=== PATIENT | female | born 1985 | race Caucasian/White ===

== ENCOUNTER 2022-06-15 08:00 | Outpatient (CLI) | payer OTHER | END 2022-06-15 23:59 | disposition home or self-care (01) | LOC: LAB.N 08:00 | PROVIDERS: ATTEND Physician Assistant | DX: J02.9 Acute pharyngitis, unspecified (principal) | CPT/HCPCS: 87070 ==

== ENCOUNTER 2023-11-02 14:48 | Emergency (ER) | payer OTHER ==
[2023-11-02 15:02] VITALS: BP 150/80; O2SAT 99
--- NOTE | 2023-11-02 15:28 | ED Physician Documentation ---
History of Present Illness - Stated complaint Stated Complaint: COUGHING UP BLOOD - Chief complaint Chief Complaint: General - Additonal information Additional information: 37-year-old female presents emergency department for 1 episode of hemoptysis. Patient says that she had her tonsils removed 2 days ago, she did not have adenoidectomy. Patient says that she has been recovering well pain has been well-controlled with Tylenol and ibuprofen. She said she went down to take a nap today she been sleeping flat on her back, she awoke coughing and coughed up about a dollar sized amount of bloody phlegm. She said that she called the emergency line to ENT office and they told her to come into the emergency department if she was continuing to have persistent hemoptysis. Patient said this only happened once but she was feeling quite nervous at home and wanted to come into the emergency department for further evaluation. This happened about 2 hours ago has not noted any blood since then. She reports that she is doing well drinking plenty of fluids at home PD PAST MEDICAL HISTORY - Past Medical History Past Medical History: Yes Cardiovascular: Hypertension Endocrine/Autoimmune: HyPOthyroidism - Past Surgical History Past Surgical History: Yes HEENT: Tonsil/Adenoidectomy - Present Medications Home Medications: Ambulatory Orders Medication Instructions Recorded Confirmed Levothyroxine Sodium [Synthroid] 11/02/23 Lisinopril [Zestril] 10 11/02/23 - Allergies Allergies/Adverse Reactions: Allergies Allergy/AdvReac Type Severity Reaction Status Date / Time No Known Drug Allergies Allergy Verified 11/02/23 15:02 - Social History Does the pt smoke?: No Smoking Status: Never smoker Does the pt drink ETOH?: No Does the pt have substance abuse?: No - Immunizations Immunizations are current?: Yes - POLST Patient has POLST: No PD ED PE NORMAL - Vitals Vital signs reviewed: Yes - General General: Alert and oriented X 3, No acute distress, Well developed/nourished - HEENT HEENT: Atraumatic, Moist mucous membranes, Other (post bilateral tonsilectomy, no bleeding noted to either side) - Neck Neck: No adenopathy, Other (trachea midline) Results - Vitals Vitals: Vital Signs - 24 hr 11/02/23 14:51 Temperature 36.8 C Heart Rate 70 Respiratory 16 Rate Blood Pressure 150/80 H O2 Saturation 99 Oxygen O2 Source Room air PD Medical Decision Making - ED course ED course: Patient presents emergency department for 1 episode of Hemoptysis. This happened about 2 hours ago and has not happened since then. Upon evaluation of the patient I am not seeing any obvious signs of bleeding. Patient is very reassured. She was offered to stay here for a period of time for monitoring but she says that she is feeling comfortable to discharge at this time. Patient was encouraged to drink plenty of fluids and stay very well-hydrated to keep her throat very moist while she is recovering from her tonsillectomy and to follow- up with ENT as scheduled appointment. She is given return precautions and taught signs and symptoms of postop tonsillectomy hemorrhage. I have no concerns at this point in time the patient is experiencing a postop tonsillectomy hemorrhage. All questions have been answered. Departure - Departure Disposition: 01 Home, Self Care Clinical Impression: Status post tonsillectomy Condition: Good Instructions: ED Tonsillectomy Post Op Bleeding Comments: Thank you for trusting us with your care. I do not see any bleeding at the incision sites of your tonsillectomy. Going home as we discussed I would advise sleeping with your head slightly elevated continue to drink plenty of fluids to make sure that your throat is staying very moist. Come back to the emergency department if you are having persistent bleeding, fevers or chills, or any other concerning symptoms. Wishing you a speedy recovery. Forms: PCP List Discharge Date/Time: 11/02/23 15:37
== END 2023-11-02 15:37 | disposition home or self-care (01) ==
LOC: ED 14:48
DX: J95.830 Postprocedural hemorrhage of a respiratory system organ or structure following a respiratory system procedure (principal); I10 Essential (primary) hypertension
CPT/HCPCS: 99282; 99283

== ENCOUNTER 2023-11-07 13:02 | Emergency (ER) | payer OTHER ==
[2023-11-07 13:15] VITALS: O2SAT 100
--- NOTE | 2023-11-07 14:20 | ED Physician Documentation ---
PD HPI ABD PAIN - Stated complaint Stated Complaint: GI - Chief complaint Chief Complaint: Abd Pain - Additional information Additional information: 37-year-old female presents emergency department for 1 week of constipation. Patient has been taking stool softeners at home as well as suppositories without any relief. She denies any nausea vomiting no abdominal pain. No recent fevers or chills. Patient recently had tonsillectomy about a week ago and has been taking pain medication for this and says that she is prone to constipation and she Believes the recent tonsillectomy and pain medications that she is been taking for that is the cause of her current constipation. PD PAST MEDICAL HISTORY - Past Medical History Past Medical History: Yes Cardiovascular: Hypertension Endocrine/Autoimmune: HyPOthyroidism - Past Surgical History Past Surgical History: Yes HEENT: Tonsil/Adenoidectomy - Present Medications Home Medications: Ambulatory Orders Medication Instructions Recorded Confirmed Levothyroxine Sodium [Synthroid] 1 tab PO DAILY 11/02/23 11/07/23 Lisinopril [Zestril] 1 tab PO DAILY 11/02/23 11/07/23 Lactulose 15 ml PO TID PRN #50 ml 11/07/23 - Allergies Allergies/Adverse Reactions: Allergies Allergy/AdvReac Type Severity Reaction Status Date / Time No Known Drug Allergies Allergy Verified 11/07/23 13:05 - Social History Does the pt smoke?: No Smoking Status: Never smoker Does the pt drink ETOH?: No Does the pt have substance abuse?: No - Immunizations Immunizations are current?: Yes - POLST Patient has POLST: No PD ED PE NORMAL - Vitals Vital signs reviewed: Yes - General General: Alert and oriented X 3, No acute distress, Well developed/nourished - Respiratory Respiratory: No respiratory distress, Clear bilaterally - Abdomen Abdomen: Normal bowel sounds, Soft, Non tender, Non distended, No organomegaly - Back Back: No CVA TTP - Derm Derm: Normal color, Warm and dry, No rash - Psych Psych: Normal mood, Normal affect Results - Vitals Vitals: Vital Signs - 24 hr 11/07/23 11/07/23 13:05 15:33 Temperature 36.8 C Heart Rate 100 74 Respiratory 16 18 Rate Blood Pressure 150/90 H 142/86 H O2 Saturation 100 100 Oxygen O2 Source Room air PD Medical Decision Making - ED course ED course: 37-year-old patient presents emergency department constipation. She has no abdominal pain no nausea vomiting making it less concerned with this being a possible small bowel obstruction. She was given a Fleet enema here in the emergency department as well as a dose of lactulose. Patient said that she was comfortable going home with a prescription of lactulose and was told to increase her activity such as ambulating and different yoga poses to help with passing stool. Prescription of lactulose sent to her preferred pharmacy patient was told to continue with MiraLAX and to stay plenty hydrated including drinking prune juice or pear juice to help with alleviation of constipation. She was given very strict return precautions if she starting to notice any nausea vomiting, worsening abdominal pain, fevers or chills or any other concerning symptoms to present back to the emergency department but to aggressively try at home management of alleviation of this constipation. Patient is agreeable to this plan safe for discharge all questions answered. Departure - Departure Disposition: 01 Home, Self Care Clinical Impression: Constipation Qualifiers: Constipation type: unspecified constipation type Qualified Code(s): K59.00 - Constipation, unspecified Instructions: ED Constipation Prescriptions: Lactulose 15 ml PO TID PRN #50 ml PRN Reason: Constipation Comments: Thank you for trusting us with your care. We have given you an mineral Fleet enema to help with your constipation as well as started you on something called lactulose here in the emergency department. Going home you can take 15 mL of lactulose 3 times a day for ongoing constipation. Make sure that you are drinking plenty of fluids I would suggest adding in some prune juice or pear juice to help with your constipation and moving around frequently doing different yoga poses and going for long walks to make sure that you are increasing your gut motility. Please come back to the emergency department for having any worsening abdominal pain, nausea vomiting, or any other concerning symptoms. Forms: PCP List Discharge Date/Time: 11/07/23 15:33
[2023-11-07] MEDS: MINERAL OIL ENEMA 133 ML BOTTLE RC STA (15:01)
[2023-11-07] MEDS: LACTULOSE 10 GM /15 ML UDC PO STA (15:01)
[2023-11-07 15:39] VITALS: BP 142/86
== END 2023-11-07 15:33 | disposition home or self-care (01) ==
LOC: ED 13:02
DX: K59.00 Constipation, unspecified (principal); I10 Essential (primary) hypertension
CPT/HCPCS: 99283

== ENCOUNTER 2023-11-07 21:11 | Emergency (ER) | payer OTHER ==
[2023-11-07 21:18] VITALS: O2SAT 98
--- NOTE | 2023-11-07 21:32 | ED Physician Documentation ---
History of Present Illness - Stated complaint Stated Complaint: CONSTIPATED - Chief complaint Chief Complaint: Abd Pain - History obtained from History obtained from: Patient - Additonal information Additional information: 37-year-old woman had a tonsillectomy a week ago. Her last BM was 2 days prior to that. PD PAST MEDICAL HISTORY - Past Medical History Past Medical History: Yes Cardiovascular: Hypertension Endocrine/Autoimmune: HyPOthyroidism - Past Surgical History Past Surgical History: Yes HEENT: Tonsil/Adenoidectomy - Present Medications Home Medications: Ambulatory Orders Medication Instructions Recorded Confirmed Levothyroxine Sodium [Synthroid] 1 tab PO DAILY 11/02/23 11/07/23 Lisinopril [Zestril] 1 tab PO DAILY 11/02/23 11/07/23 Lactulose 15 ml PO TID PRN #50 ml 11/07/23 - Allergies Allergies/Adverse Reactions: Allergies Allergy/AdvReac Type Severity Reaction Status Date / Time No Known Drug Allergies Allergy Verified 11/07/23 21:13 - Social History Does the pt smoke?: No Smoking Status: Never smoker Does the pt drink ETOH?: No Does the pt have substance abuse?: No - Immunizations Immunizations are current?: Yes - POLST Patient has POLST: No PD ED PE NORMAL - Vitals Vital signs reviewed: Yes - General General: Alert and oriented X 3, No acute distress - Abdomen Abdomen: Non tender - Rectal Rectal: Other (Large firm fecal impaction. All exams and interventions were done with nurse Hess in the room. A soap suds enema was placed during exam.) Results - Vitals Vitals: Vital Signs - 24 hr 11/07/23 11/07/23 21:13 22:15 Temperature 36.8 C Heart Rate 88 73 Respiratory 16 19 Rate Blood Pressure 150/90 H 150/80 H O2 Saturation 98 98 Oxygen O2 Source Room air PD Medical Decision Making - ED course ED course: 37-year-old woman presents with a fecal impaction related to narcotic use from a tonsillectomy. After a large-volume enema she had a very large bowel movement and was feeling much better. Departure - Departure Disposition: 01 Home, Self Care Clinical Impression: Fecal impaction Condition: Good Record reviewed to determine appropriate education?: Yes Instructions: ED Impaction Fecal Treated Forms: PCP List
[2023-11-07 22:30] VITALS: BP 150/80
== END 2023-11-07 22:10 | disposition home or self-care (01) ==
LOC: ED 21:11
DX: K56.41 Fecal impaction (principal); I10 Essential (primary) hypertension
CPT/HCPCS: 99283; A9270